=== PATIENT | female | born 1975 ===

== ENCOUNTER 2025-06-20 08:56 | Emergency (ER) | payer MEDICAID ==
[~2025-06-20] VITALS: Ht 157.5 cm; Wt 73.1 kg
[2025-06-20 09:11] VITALS: TEMP 97.4
[2025-06-20] MEDS ORDERED: PERM60CR27 TOP (11:17)
--- NOTE | 2025-06-20 11:18 | Physician Documentation ---
History of Present Illness ~ Chief Complaint: Rash Stated Complaint: RASH Time Seen by MD: 11:08 OK to notify your PCP?: Yes Source: patient Mode of Arrival: POV Exam Limitations: no limitations HPI 49-year-old female presents with visible lice on her head as well as a rash to her upper back and scalp. He has that this has been going on for the past month. She is currently staying at the [facility]. She has not tried any [id number] treatments yet. Medication Reconciliation Allergies: Coded Allergies: No Known Allergies (Unverified , 06/20/25) Scheduled Permethrin 5% Cream* (Elimite 5% Cream*), 1 APPLIC TOP ONCE Review of Systems All Other Systems at this time: Reviewed and Negative Physical Exam Vital Signs: RN Vital Signs have been reviewed: Yes, Temperature: 97.4, Source: Temporal, Heart Rate: 63, Respiratory Rate: 15, BP: 101/73, Pulse Oximetry: 99, Weight: 73.100 Oxygen Flow Rate: 0 Pulse Oximetry Reflects: adequate oxygenation Physical Exam General: Alert, no distress. HEENT: No injection, moist mucous membranes. Neck: Full range of motion. Respiratory: No respiratory distress, equal chest rise and fall. Chest: No accessory muscle use. Cardiovascular: Regular rate and rhythm. Gastrointestinal: Nondistended. Extremities: Normal range of motion, no deformity. Neurologic: Oriented x4. Psychiatric: Normal mood and affect. Skin: Rash to upper back is macular with scabs. Visible lice seen in hair. Progress Results/Orders Reviewed/noted all lab results: Yes Results/Orders Vital Signs 06/20/25 06/20/25 06/20/25 09:11 10:54 11:26 Temp 97.4 Pulse 60 63 65 Resp 16 15 15 B/P (MAP) 103/62 101/73 (82) 122/77 Pulse Ox 96 99 99 O2 Flow Rate 0 Medical Decision Making Additional information obtaine: old records Findings She is presenting for head lice for the past month. She has a visible lice seen on her in the department. She does have a periodic rash to the upper neck that extends into her upper back. There does not be any signs of infection with this rash. She she is homeless and living at the [facility]. I provided her with a prescription for permethrin cream. He was given follow up instructions as well as discharge instructions. Differential Dx:Considerations: Include: Candidiasis, Erysipelas, Herpes zoster, Impetigo, Psoriaisis, Scabies, Urticaria, Viral exanthema Departure Disposition: 01 HOME / SELF CARE / HOMELESS Impression: Primary Impression: Lice infested hair Additional Impression: Pruritic rash Condition: Stable Discharge Instructions: Lice, Adult, Pruritus Additional Instructions: Wash all clothing and bedding. Manually remove all lice and nits from your hair. Return back here for any new or worsening symptoms. Referrals: NO PRIMARY CARE PROVIDER (PCP) Prescriptions Permethrin 5% Cream* (Elimite 5% Cream*) 60 Gm Cream.gm. 1 APPLIC TOP ONCE, #60 GM massage into skin from head to soles of feet one time, leave on for 8-14 hours then remove by thorough washing Prov: JUSTINA THOMAS 06/20/25 Education Educated: Patient Educated regarding: diagnosis, treatment, prognosis, need for follow up Additional Comment Medical Screen Exam This patient recieved a medical screening examination. After reviewing the individual's medical complaints with presenting symptoms and performing an appropriate physical examination, it was determined that no immediate life- threatening emergency medical condition is present. This individual is also not a women having contractions. Signature Scribe Signature: . Attestation: Scribed for Justina Thomas by Justina Cabrera NP . 06/20/25 14:38 Parts of this note were created using [employer] voice recognition software program. While efforts were made to correct any mistakes made by this voice recognition software program, nonsensical phrases may remain in this note. In addition, there may be errors and syntax, grammar, content and spelling. JUSTINA THOMAS Jun 20, 2025 11:18
[2025-06-20 11:26] VITALS: BP 122/77; PULSE 65; RESP 15; O2SAT 99
== END 2025-06-20 11:29 | disposition home or self-care (01) ==
LOC: ER 08:58
DX: B85.0 Pediculosis due to Pediculus humanus capitis (principal); L29.9 Pruritus, unspecified; Z79.899 Other long term (current) drug therapy
CPT/HCPCS: 99283

== ENCOUNTER 2025-07-07 09:54 | Emergency (ER) | payer MEDICAID ==
[~2025-07-07] VITALS: Ht 165.1 cm; Wt 81.8 kg
[~2025-07-07 09:54] MED LIST: PERM60CR27 TOP
[2025-07-07 10:06] VITALS: BP 120/75; PULSE 68; RESP 18; TEMP 98.5; O2SAT 99
[2025-07-07] MEDS ORDERED: Permethrin Cream 60gm TP ONE (10:20)
--- NOTE | 2025-07-07 10:24 | Physician Documentation ---
History of Present Illness ~ Chief Complaint: Bite-insect Stated Complaint: LICE Time Seen by MD: 10:16 HPI 49-year-old female who is currently living at the [facility] presents complaining of itchy scalp and a recent his history of lice. She is permethrin cream but reports she has a ongoing symptoms. Tetanus within 5 years?: No Medication Reconciliation Allergies: Coded Allergies: No Known Allergies (Unverified , 06/20/25) Scheduled Permethrin 5% Cream* (Elimite 5% Cream*), 1 APPLIC TOP ONCE Review of Systems All Other Systems at this time: Reviewed and Negative Physical Exam Vital Signs: Temperature: 98.5, Heart Rate: 68, Respiratory Rate: 18, BP: 120/75, Pulse Oximetry: 99, Weight: 81.820 Oxygen Flow Rate: 0 Physical Exam General: Alert, no apparent distress. Neurologic: Oriented x4. Psychiatric: Normal mood and affect. Skin: Normal color, warm and dry. No edema, no ecchymosis. Whitish appearing bugs on the scalp no erythema Progress Results/Orders Results/Orders Medications Received in ER Medications (Trade) Dose Ordered Sig/Iwona Route PRN Reason Start Time Stop Time Status Last Admin Dose Admin (Lice Treatment) 1 applic ONCE ONCE TP 07/07/25 10:25 07/07/25 10:26 DC 07/07/25 10:36 1 APPLIC Vital Signs 07/07/25 10:06 Temp 98.5 Pulse 68 Resp 18 B/P (MAP) 120/75 Pulse Ox 99 O2 Flow Rate 0 Medical Decision Making Additional information obtaine: old records Findings We will be treating this patient empirically for lice infestation via permethrin her rinse. States she already has permethrin cream Differential Dx:Considerations: Include: Abrasion, Allergic reaction, Anaphylaxis, Cellulitis, Contusion, Fracture, Hematoma, Insect envenomation, Laceration, Neurovascular injury, Punture wound, Retained foreign body, Urticaria, Other Departure Impression: Primary Impression: Insect bites Additional Impression: Lice infested hair Condition: Stable Discharge Instructions: Insect Bite, Adult, [id number] Referrals: NO PRIMARY CARE PROVIDER (PCP) Signature Scribe Signature: k Attestation: Scribed for Ross Lopez Sole Conditioner by Ross Cabrera NP . 07/07/25 10:26 ROSS LOPEZ NP Jul 07, 2025 10:24 TEMITOPE AGRAWAL MD Jul 07, 2025 17:45
[2025-07-07] MEDS: Permethrin 1% 59ml topical rinse TP ONE (10:36)
== END 2025-07-07 10:37 | disposition home or self-care (01) ==
LOC: ER 09:54
DX: B85.0 Pediculosis due to Pediculus humanus capitis (principal); Z79.899 Other long term (current) drug therapy; W57.XXXA Bitten or stung by nonvenomous insect and other nonvenomous arthropods, initial encounter; Y93.89 Activity, other specified; Y92.89 Other specified places as the place of occurrence of the external cause; Y99.8 Other external cause status
CPT/HCPCS: 99282